=== PATIENT | female | born 1940 | race Native Hawaiian/Other Pacific Islander ===

== ENCOUNTER 2018-01-23 16:19 | Inpatient (IN) | payer MEDICARE ==
--- NOTE | 2018-01-23 17:11 | C.PDOC ---
History Of Present Illness Patient KIRK for evaluation after she was found sitting on the porch steps outside her home. As per son, he was called by a neighbor who saw her outside. Patient apparently was trying to get into the home when she became weak and confused. As per son, he found her at approx 4 pm and called the ambulance ( seen normal at 1:30pm). Son states she appears to understand when being spoken to but cannot get the correct words out, and this is not typical of her baseline. Family denies facial droop, extremity weakness, sensory changes, drooling, slurred speech. PMhx of HTN, breast CA s/p mastectomy. PMD- Dr Milton in [facility] Time Seen by Provider: 01/23/18 16:52 Chief Complaint (Nursing): Weakness/Neurological Deficit History Per: Patient, EMS, Family History/Exam Limitations: clinical condition Onset/Duration Of Symptoms: Hrs (approx 4pm) Current Symptoms Are (Timing): Still Present Past Medical History Reviewed: Historical Data, Nursing Documentation, Vital Signs Vital Signs: Last Vital Signs Temp 100.2 F H 01/24/18 15:20 Pulse 102 H 01/24/18 15:20 Resp 18 01/24/18 15:20 BP 169/91 H 01/24/18 15:20 Pulse Ox 97 01/24/18 15:20 - Medical History PMH: HTN Family History: States: No Known Family Hx - Social History Hx Alcohol Use: No Hx Substance Use: No Review Of Systems Review Of Systems: ROS cannot be obtained secondary to pt's inabilty to answer questions. Physical Exam - Physical Exam Appears: Well, Non-toxic, No Acute Distress Head: Atraumatic, Normacephalic Eye(s): bilateral: Normal Inspection (no nystagmus ), PERRL, EOMI Oral Mucosa: Moist Neck: Other (no meningismus) Cardiovascular: Rhythm Regular (tachycardic ) Respiratory: Normal Breath Sounds, No Rales, No Rhonchi, No Wheezing Gastrointestinal/Abdominal: Normal Exam, Bowel Sounds, Soft, No Tenderness Neurological/Psych: Oriented x3, Normal Speech, Normal Cognition, Normal Cranial Nerves, No Cerebellar Signs, Normal Motor, Normal Sensation, Normal Reflexes, Expressive Aphasia, No Dysarthria ED Course And Treatment - Laboratory Results Result Diagrams: 01/24/18 08:02 01/24/18 08:02 ECG: Interpreted By Me, Viewed By Me (sinus tachycardia 104 bpm, normal axis, LVH, T wave ) O2 Sat by Pulse Oximetry: 98 (RA) Pulse Ox Interpretation: Normal - CT Scan/US CTA HEAD/NECK Other Rad Studies (CT/US): Read By Radiologist, Radiology Report Reviewed CT/US Interpretation: Accession No. : [id number]. Patient Name / ID : EFE TRIANA / [id number]. Exam Date : 01/23/2018 17:19:54 ( Approved ). Study Comment : Sex / Age : F / 77Y. Creator : Marley Oconnor. Dictator : Clement Canela MD. Lead Pressman : [employer] : Clement Canela MD. Approver2 : Report Date : 01/23/2018 17:28:13. My Comment : . PROCEDURE: CT Angiography of the Brain. HISTORY: code stroke. COMPARISON: None available. TECHNIQUE: CT angiography of the intracranial and cervical arteries was performed. Coronal and sagittal maximum intensity projection reformatted images were generated. Contrast Dose: Visipaque 320, 100 cc. Radiation dose:Total exam DLP = 350.44 mGy-cm. This CT exam was performed using one or more of the following dose reduction techniques: Automated exposure control, adjustment of the mA and/or kV according to patient size, and/ or use of iterative reconstruction technique. FINDINGS: INTERNAL CEREBRAL ARTERIES: Unremarkable. The skull base, petrous, and supraclinoid segments are bilaterally widely patent. There is prominent atherosclerosis of the bilateral cavernous internal carotid artery segments which appear nevertheless patent grossly. 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 The right A1 and bilateral A2 segments are widely patent. Smaller distal branches unremarkable, as visualized. MIDDLE CEREBRAL ARTERIES: Unremarkable. M1 and M2 segments are widely patent. Perisylvian branches grossly symmetric. POSTERIOR CIRCULATION: Basilar Artery : Unremarkable. Distal Vertebral Arteries: Unremarkable. Posterior Cerebral Arteries: Right posterior artery appears widely patent. The left METAL POLISHER P1 segment appears hypoplastic. Posterior Inferior Cerebellar Arteries: Unremarkable. NECK CTA: Common Carotid arteries: The bilateral common carotid appear widely patent from their origins to their bifurcations with no significant stenosis appreciated. No evidence to suggest common carotid artery dissection. Internal Carotid arteries: No significant stenosis is appreciated throughout the cervical internal carotid artery segments bilaterally and there is no evidence of dissection either. External Carotid arteries: Appear unremarkable bilaterally. Vertebral arteries: The bilateral vertebral arteries appear normal in caliber from their origins to their junction with the basilar artery. No significant stenosis or definite pattern of dissection. ANEURYSM/ VASCULAR MALFORMATIONS: None. OTHER FINDINGS: None. 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 Hypoplastic left P1 METAL POLISHER segment. Remainder the brain CT is remarkable for extensive bilateral ICA cavernous atherosclerotic plaque with both vessels remaining patent nevertheless. No definite significant stenosis or definite occlusion identified in neck CTA. CT HEAD Other Rad Studies (CT/US): Read By Radiologist, Radiology Report Reviewed CT/US Interpretation: Accession No. : [id number]. Patient Name / ID : EFE TRIANA / [id number]. Exam Date : 01/23/2018 17:13:47 ( Approved ). Study Comment : Sex / Age : F / 77Y. Creator : Marley Oconnor. Dictator : Chino Echavarria MD. Lead Pressman : [employer] : Chino Echavarria MD. Approver2 : Report Date : 01/23/2018 17:20:25. My Comment : . PROCEDURE: CT HEAD WITHOUT CONTRAST. HISTORY: Code Stroke. Leg weakness, side unspecified. Expressive aphasia a start at approximately 16:00 today. COMPARISON: None available. TECHNIQUE: Axial computed tomography images were obtained through the head/brain without intravenous contrast. Radiation dose: Total exam DLP = 735.36 mGy-cm. This CT exam was performed using one or more of the following dose reduction techniques: Automated exposure control, adjustment of the mA and/or kV according to patient size, and/or use of iterative reconstruction technique. FINDINGS: HEMORRHAGE: No intracranial hemorrhage. BRAIN: No mass effect or edema. Questionable small brainstem infarct on the right. VENTRICLES: Unremarkable. No hydrocephalus. CALVARIUM: Unremarkable. PARANASAL SINUSES: Unremarkable as visualized. No significant inflammatory changes. MASTOID AIR CELLS: Unremarkable as visualized. No inflammatory changes. OTHER FINDINGS: None. IMPRESSION: No acute intracranial findings. 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 . Code stroke protocol: Study completed 17: 16. Radiologist notified 17:24. Results conveyed verbally at 17:27 I discussed findings directly with the attending physician emergency department Dr. Peres. Interpretation finalized and available for review 17:30 Progress Note: Code stroke called. Blood work, CT head and CTA head/neck, EKG ordered and reviewed. When returned from CT scan patient noted to have low grade temp - 100.9. UA, Blood culture, Ucx, influenza swab, VBG added. 5:45pm - Patient now speaking normally, no aphasia, no neurological deficits. - Physician Consult Information Physician Contacted: Butch Cagle Outcome Of Conversation: Discussed patient with neurology agronomy advisor - recommends no tPA at this time, PO ASA and Plavix. NIHSS Stroke Scale 2 - Date/Time Evaluation Performed Date Performed: 01/23/18 Time Performed: 17:04 When Was NIHSS Performed: Baseline - How Severe is the Stroke Level of Consciousness: 0=Alert LOC to Questions: 0=Both comments correct LOC to commands: 0=Obeys both correctly Best Gaze: 0=Normal Visual: 0=No visual loss Facial: 0=Normal Motor Arm - Left: 0=No drift Motor Arm - Right: 0=No drift Motor Leg - Left: 0=No drift Motor Leg - Right: 0=No drift Limb Ataxia: 0=Absent Sensory: 0=Normal Best Language: 1=Mild to moderate aphasia Dysarthia: 0=Normal articulation Extinction & Inattention (Neglect): 0=Normal, no object Score: 1 Severity Of Stroke: 1-4 = Minor Stroke rTPA Inclusion/Exclusion - Refusal of Treatment Patient Refused Treatment: No - Inclusion Criteria for Altepase Patient is 18 years or Older: Yes The Clinical Diagnosis of Ischemic Stroke That is Causing a Potentially Disabling Neurological Deficit: Yes Time of Onset is Well Established to be Less Than 270 Minute Before Treatment Would Begin: No Risk/Benefit Discussed With Patient/Family Member Present: No Medical Decision Making Medical Decision Making: differential diagnoses considered: TIA/CVA, seizure, electrolyte abnormality, sepsis/SIRS, cardiac arrhythmia Disposition - Disposition Disposition: HOSPITALIZED Disposition Time: 18:44 Condition: STABLE - Clinical Impression Clinical Impression: Expressive aphasia, Transient ischemic attack Decision To Admit - Pt Status Changed To: Hospital Disposition Of: Inpatient - Admit Certification Admit to Inpatient:: After my assessment, the patient will require hospitalization for at least two midnights. This is because of the severity of symptoms shown, intensity of services needed, and/or the medical risk in this patient being treated as an outpatient. - InPatient: Physician Admission Certification: I certify that this patient requires 2 or more midnights of care for the following reason:: see notes - . Bed Request Type: Telemetry Admitting Physician: Mindi Richards Patient Diagnosis: Expressive aphasia, Transient ischemic attack
--- NOTE | 2018-01-23 17:30 | CT ---
PROCEDURE: CT HEAD WITHOUT CONTRAST. HISTORY: Code Stroke Leg weakness, side unspecified. Expressive aphasia a start at approximately 16:00 today COMPARISON: None available. TECHNIQUE: Axial computed tomography images were obtained through the head/brain without intravenous contrast. Radiation dose: Total exam DLP = 735.36 mGy-cm. This CT exam was performed using one or more of the following dose reduction techniques: Automated exposure control, adjustment of the mA and/or kV according to patient size, and/or use of iterative reconstruction technique. FINDINGS: HEMORRHAGE: No intracranial hemorrhage. BRAIN: No mass effect or edema. Questionable small brainstem infarct on the right. VENTRICLES: Unremarkable. No hydrocephalus. CALVARIUM: Unremarkable. PARANASAL SINUSES: Unremarkable as visualized. No significant inflammatory changes. MASTOID AIR CELLS: Unremarkable as visualized. No inflammatory changes. OTHER FINDINGS: None. IMPRESSION: No acute intracranial findings. 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 Code stroke protocol: Study completed 17:16 Radiologist notified 17:24 Results conveyed verbally at 17:27 I discussed findings directly with the attending physician emergency department Dr. Peres Interpretation finalized and available for review 17:30
[2018-01-23] MEDS ORDERED: Iodixanol 320 MG/ML 100 ML BOTTLE IV ONE (17:33)
--- NOTE | 2018-01-23 17:47 | CP.PCM.CON ---
History of Present Illness - History of Present Illness History of Present Illness: Tele-Stroke Consult Note: This is a telehealth visit completed using bi- directional video conference with the [email or web address] system. The patient is a 77-year-old woman with a past medical history of HTN, hypothyroidism, breast cancer, who was found by her son sitting on her porch, confused with speech difficulty. She was last seen normal at around 1:30 PM. In the ED, she was slightly hypertensive and was febrile. CT scan of the head did not show any acute findings. CTA of the head/neck was poor quality, but there was no large vessel occlusion noted. She was not a good candidate for IV tPA due to being outside the 3 hour time window and symptoms were not characteristic of an acute stroke. When I saw the patient, her speech was fluent and she was back to baseline without symptoms. NIHSS was 0. Review of Systems - Review of Systems All systems: reviewed and no additional remarkable complaints except Past Patient History - Past Social History Smoking Status: Never Smoked - CARDIAC Hx Hypertension: Yes - ENDOCRINE/METABOLIC Hx Diabetes Mellitus Type 2: Yes - PSYCHIATRIC Hx Substance Use: No Meds Allergies/Adverse Reactions: Allergies Allergy/AdvReac Type Severity Reaction Status Date / Time No Known Allergies Allergy Unverified 01/23/18 16:49 Physical Exam - Neurological Exam Neurological exam: Alert, CN II-XII Intact, Oriented x3, Reflexes Normal Additional comments: Speech is fluent, not dysarthric, repetition was intact, naming was intact. Strength was symmetrical throughout. No focal motor deficits. No sensory deficits. NIHSS was 0. Results - Vital Signs Recent Vital Signs: Last Vital Signs Temp 98.0 F 01/23/18 16:47 Pulse 103 H 01/23/18 16:47 Resp 20 01/23/18 16:47 BP 154/73 H 01/23/18 16:47 Pulse Ox 98 01/23/18 17:23 - Labs Result Diagrams: 01/23/18 17:44 Assessment & Plan (1) Transient ischemic attack Assessment and Plan: According to ED staff, the patient was aphasic prior to my examination. However , when I saw her, she did not have any speech difficulty and no motor/sensory deficits. I recommend the followin. Telemetry 2. MRI brain without contrast 3. Echocardiogram with bubble study 4. Aspirin 81 mg daily 5. Lipid panel, HbA1c, B12, folate, vitamin D levels 6. Fluids with NS at 100 mL/hr 7. Permissive HTN (only treat BP that is higher than 220/110 mm Hg) 8. PT/OT eval 9. Case management consult Thank you. Status: Acute Priority: High
--- NOTE | 2018-01-23 17:49 | CT ---
PROCEDURE: CT Angiography of the Brain. HISTORY: code stroke COMPARISON: None available. TECHNIQUE: CT angiography of the intracranial and cervical arteries was performed. Coronal and sagittal maximum intensity projection reformatted images were generated. Contrast Dose: Visipaque 320, 100 cc Radiation dose:Total exam DLP = 350.44 mGy-cm. This CT exam was performed using one or more of the following dose reduction techniques: Automated exposure control, adjustment of the mA and/or kV according to patient size, and/or use of iterative reconstruction technique. FINDINGS: INTERNAL CEREBRAL ARTERIES: Unremarkable. The skull base, petrous, and supraclinoid segments are bilaterally widely patent. There is prominent atherosclerosis of the bilateral cavernous internal carotid artery segments which appear nevertheless patent grossly. 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 The right A1 and bilateral A2 segments are widely patent. Smaller distal branches unremarkable, as visualized. MIDDLE CEREBRAL ARTERIES: Unremarkable. M1 and M2 segments are widely patent. Perisylvian branches grossly symmetric. POSTERIOR CIRCULATION: Basilar Artery: Unremarkable. Distal Vertebral Arteries: Unremarkable. Posterior Cerebral Arteries: Right posterior artery appears widely patent. The left CRISIS INTERVENTION SPECIALIST P1 segment appears hypoplastic. Posterior Inferior Cerebellar Arteries: Unremarkable. NECK CTA: Common Carotid arteries: The bilateral common carotid appear widely patent from their origins to their bifurcations with no significant stenosis appreciated. No evidence to suggest common carotid artery dissection. Internal Carotid arteries: No significant stenosis is appreciated throughout the cervical internal carotid artery segments bilaterally and there is no evidence of dissection either. External Carotid arteries: Appear unremarkable bilaterally. Vertebral arteries: The bilateral vertebral arteries appear normal in caliber from their origins to their junction with the basilar artery. No significant stenosis or definite pattern of dissection. ANEURYSM/ VASCULAR MALFORMATIONS: None. OTHER FINDINGS: None. 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 Hypoplastic left P1 CRISIS INTERVENTION SPECIALIST segment. Remainder the brain CT is remarkable for extensive bilateral ICA cavernous atherosclerotic plaque with both vessels remaining patent nevertheless. No definite significant stenosis or definite occlusion identified in neck CTA.
[2018-01-23 17:56] LABS: PROTHROMBIN TIME 11.6 SECONDS (9.7-12.2)
[2018-01-23 18:01] LABS: ALBUMIN 3.8 g/dL (3.5-5.0); ALT/SGPT 19 U/L (9-52); AST/SGOT 24 U/L (14-36); BLOOD UREA NITROGEN 16 mg/dL (7-17); CALCIUM 8.5 mg/dl (8.6-10.4); GFR AFRICAN-AMERICAN > 60; GFR NON-AFRICAN AMERICAN > 60; HDL CHOLESTEROL 45 mg/dL (30-70)
[2018-01-23 18:13] LABS: LDL CHOLESTEROL 117 mg/dL (0-129)
[2018-01-23 18:26] LABS: VENOUS BLOOD GAS BASE EXCESS -0.9 mmol/L (0.0-2.0); VENOUS BLOOD GAS PCO2 31 mmHg (40-60); VENOUS BLOOD GAS PO2 35 mm/Hg (30-55); VENOUS BLOOD PH 7.46 (7.32-7.43)
[2018-01-23 18:27] LABS: BASO % 0.3 % (0.0-2.0); EOS % 0.4 % (0.0-4.0); HEMOGLOBIN 14.2 g/dL (11.0-16.0); LYMPH # 0.4 K/uL (1.0-4.3); LYMPH % 4.3 % (20.0-40.0); MEAN CELL VOLUME 86.8 fL (81.0-99.0); MEAN CORPUSCULAR HEMOGLOBIN 29.9 pg (27.0-31.0); MEAN CORPUSCULAR HGB CONC 34.5 g/dL (33.0-37.0); MEAN PLATELET VOLUME 7.8 fL (7.2-11.7); MONO # 0.7 K/uL (0.0-0.8); MONO % 6.7 % (0.0-10.0); NEUT # 8.8 K/uL (1.8-7.0); NEUT % 88.3 % (50.0-75.0); PLATELET COUNT 216 K/uL (130-400); RBC 4.74 Mil/uL (3.80-5.20); WHITE BLOOD COUNT 9.9 K/uL (4.8-10.8)
--- NOTE | 2018-01-23 18:45 | RAD ---
HISTORY: Code Stroke COMPARISON: No prior. FINDINGS: LUNGS: No active pulmonary disease. PLEURA: No significant pleural effusion identified, no pneumothorax apparent. CARDIOVASCULAR: Normal. OSSEOUS STRUCTURES: No significant abnormalities. VISUALIZED UPPER ABDOMEN: Normal. OTHER FINDINGS: None. IMPRESSION: No active disease.
[2018-01-23] MEDS ORDERED: Sodium Chloride 0.9% 500 ML IV ONE (18:48)
[2018-01-23 19:24] LABS: LYMPHOCYTE 4 % (20-40); MONOCYTE 4 % (0-10); NEUTROPHIL 92 % (50-75); PLATELET ESTIMATE NORMAL (NORMAL); TOTAL CELLS COUNTED 100
[2018-01-23 19:25] LABS: ANISOCYTOSIS SLIGHT; OVALOCYTES SLIGHT; POIKILOCYTOSIS SLIGHT
[2018-01-23 20:15] LABS: SQUAMOUS EPITHIAL < 1 /hpf (0-5); URINE BACTERIA RARE (<OCC); URINE BILIRUBIN NEGATIVE (NEGATIVE); URINE BLOOD 1+ (NEGATIVE); URINE CLARITY Clear (Clear); URINE COLOR Yellow (YELLOW); URINE GLUCOSE (UA) 1+ mg/dL (Normal); URINE LEUKOCYTE ESTERASE NEG Leu/uL (Negative); URINE PROTEIN 1+ mg/dL (NEGATIVE); URINE UROBILINOGEN NORMAL mg/dL (0.2-1.0)
[2018-01-24] MEDS: Levothyroxine 25 MCG TAB PO SCH (06:22)
--- NOTE | 2018-01-24 07:31 | CP.PCM.PN ---
Subjective - Date & Time of Evaluation Date of Evaluation: 01/24/18 Time of Evaluation: 07:30 - Subjective Subjective: Ms. Vega was seen and examined at the bedside. She is alert, oriented in all spheres. She denies any headache, dizziness, lightheadedness, nausea, vomiting. She remains febrile with T- max of 101.4. septic work up was done. ID on board. She is able to follow simple commands. HGBA1C is 9.9 and LDL of 117. She is able to ambulate to the bathroom last night with minimal assistance. Objective - Vital Signs/Intake and Output Vital Signs (last 24 hours): Temp Pulse Resp BP Pulse Ox 101.4 F H 99 H 20 135/64 99 01/24/18 06:39 01/24/18 04:00 01/24/18 04:00 01/24/18 04:00 01/24/18 04:00 - Medications Medications: Current Medications Aspirin (Aspirin Chewable) 81 mg PO DAILY [facility] Clopidogrel Bisulfate (Plavix) 75 mg PO DAILY [facility] Famotidine (Pepcid) 20 mg PO DAILY [facility] Insulin Aspart (Novolog) 0 unit SC ACHS [facility] PRN Reason: Protocol Levothyroxine Sodium (Synthroid) 25 mcg PO DAILY@0630 [facility] Last Admin: 01/24/18 06:22 Dose: 25 mcg Pneumococcal Polyvalent Vaccine (Pneumovax 23 Vaccine) 0.5 ml IM .ONCE ONE Stop: 01/25/18 10:01 - Labs Labs: 01/23/18 18:23 01/23/18 17:44 PT 11.6 SECONDS (9.7-12.2) 01/23/18 17:44 INR 1.0 01/23/18 17:44 APTT 19 SECONDS (21-34) L 01/23/18 17:44 - Constitutional Appears: No Acute Distress - Head Exam Head Exam: NORMAL INSPECTION - Eye Exam Pupil Exam: PERRL - Neck Exam Neck Exam: Full ROM - Extremities Exam Extremities Exam: Full ROM, Normal Capillary Refill, Normal Inspection. absent : Joint Swelling, Pedal Edema - Neurological Exam Neurological Exam: Alert, Awake, Oriented x3 Neuro motor strength exam: Left Upper Extremity: 4, Right Upper Extremity: 4, Left Lower Extremity: 4, Right Lower Extremity: 4 Additional comments: She is alert, oriented, follows all commands, Sensation is intact. Assessment and Plan (1) Transient ischemic attack Assessment & Plan: Case discussed with Dr. Cagle, continue all current medical, physical, and occupational therapies. Recommend for permissive hypertension until 18:00 today , treat systolic blood pressure more than 220mm/ Hg, and diastolic more than > 110 mm/Hg. Recommend glycemic control and endrocrine consult. Pending MRI of the brain without contrast. MRA of the head and neck due to poor quality of CTA. Pending echocardiogram. Recommend to follow any orders from ID. Status: Acute
[2018-01-24] MEDS: (Novolog) Insulin Aspart, Recombinant 100 u/ml 10 ml vial SC SCH ×4 (07:54→21:18)
[2018-01-24 08:17] LABS: HEMOGLOBIN 13.2 g/dL (11.0-16.0); MEAN CELL VOLUME 86.5 fL (81.0-99.0); MEAN CORPUSCULAR HEMOGLOBIN 30.2 pg (27.0-31.0); MEAN PLATELET VOLUME 8.3 fL (7.2-11.7); RBC 4.35 Mil/uL (3.80-5.20); WHITE BLOOD COUNT 5.8 K/uL (4.8-10.8)
[2018-01-24 08:28] LABS: BLOOD UREA NITROGEN 16 mg/dL (7-17); CALCIUM 8.4 mg/dl (8.6-10.4); GFR AFRICAN-AMERICAN > 60; GFR NON-AFRICAN AMERICAN > 60
[2018-01-24 08:37] LABS: IRON 26 ug/dL (37-170)
[2018-01-24 08:48] LABS: % IRON SATURATION 9 (20-55); TOTAL IRON BINDING CAPACITY 297 ug/dL (250-450)
--- NOTE | 2018-01-24 08:51 | CP.PCM.PN ---
Subjective - Date & Time of Evaluation Date of Evaluation: 01/24/18 Time of Evaluation: 08:51 - Subjective Subjective: INFECTIOUS DISEASE CONSULT; HPI; 77 years old [place] female admitted via the emergency room with acute confusion, expressive aphasia.s/p CODE STROKE Emergency neuro consult obtained. CT head with no intracranial hemorrhage or infarct. Patient presently has no residual weakness, slurred speech but feels weak. Patient also admits to elevated temperatures for 1 day. In the ER patient was found to have a fever of 101.4. Patient presently denies any sore throat but states she had upper respiratory infection prior to this event. Patient denies any headaches or sinus problems. Chest x-ray on admission was unremarkable. Infectious disease consult requested by PMD for elevated temperatures/possible sepsis. PMH: HTN,HYPOTHYROIDISM, BREAST CA s/p mastectomy. In remission as per family members. Family History: States: No Known Family Hx - Social History Hx Alcohol Use: No Hx Substance Use: No Review Of Systems Review Of Systems: ROS cannot be obtained secondary to pt's inabilty to answer questions. WANTS HER SON TO ANSWER QUESTIONS. SHE FEELS WEAK,SPEECH CLEAR HAD URTI PRIOR TO THIS EVENT. DENIES HEADACHE/OR SINUS PROBLEM Objective - Vital Signs/Intake and Output Vital Signs (last 24 hours): Temp Pulse Resp BP Pulse Ox 99.8 F H 98 H 20 134/64 95 01/24/18 08:27 01/24/18 08:41 01/24/18 08:27 01/24/18 08:27 01/24/18 08:27 - Medications Medications: Current Medications Aspirin (Aspirin Chewable) 81 mg PO DAILY [facility] Clopidogrel Bisulfate (Plavix) 75 mg PO DAILY [facility] Famotidine (Pepcid) 20 mg PO DAILY [facility] Ceftriaxone Sodium 1 gm/ (Sodium Chloride) 100 mls @ 100 mls/hr IVPB Q12H [facility] PRN Reason: Protocol Insulin Aspart (Novolog) 0 unit SC ACHS [facility] PRN Reason: Protocol Last Admin: 01/24/18 07:54 Dose: Not Given Levothyroxine Sodium (Synthroid) 25 mcg PO DAILY@0630 [facility] Last Admin: 01/24/18 06:22 Dose: 25 mcg Pneumococcal Polyvalent Vaccine (Pneumovax 23 Vaccine) 0.5 ml IM .ONCE ONE Stop: 01/25/18 10:01 Rosuvastatin Calcium (Crestor) 20 mg PO HS [facility] - Labs Labs: 01/24/18 08:02 01/24/18 08:02 PT 11.6 SECONDS (9.7-12.2) 01/23/18 17:44 INR 1.0 01/23/18 17:44 APTT 19 SECONDS (21-34) L 01/23/18 17:44 - Constitutional Appears: No Acute Distress, Cachectic - Head Exam Head Exam: NORMAL INSPECTION - Eye Exam Eye Exam: EOMI, PERRL - ENT Exam ENT Exam: Mucous Membranes Dry, Normal Oropharynx - Neck Exam Neck Exam: Normal Inspection. absent: Meningismus - Respiratory Exam Respiratory Exam: Clear to Ausculation Bilateral - Cardiovascular Exam Cardiovascular Exam: REGULAR RHYTHM, +S2 - GI/Abdominal Exam GI & Abdominal Exam: Soft, Normal Bowel Sounds - Extremities Exam Extremities Exam: Normal Capillary Refill. absent: Calf Tenderness, Pedal Edema - Neurological Exam Neurological Exam: Alert, Awake, CN II-XII Intact, Normal Gait (NOT TESTED.), Reflexes Normal - Psychiatric Exam Psychiatric exam: Normal Mood - Skin Skin Exam: Normal Color, Warm Assessment and Plan (1) Fever Assessment & Plan: NEW ONSET. PANCULTURES. THROAT CULTURE. ESR CRP. C2,C4, CH50 RH FACTOR UA/URINE CULTURE. 2 D ECHO R/O VEGETATIONS START IV ROCEPHIN 1GM IVPB [id number] 01/24/18. F/U CULTURES TO ADJUST ABX. Status: Acute (2) Transient ischemic attack Assessment & Plan: S/P TIA. S/P EXPRESSIVE APHASIA Status: Acute (3) HTN (hypertension) Status: Acute (4) Hypothyroidism Assessment & Plan: TSH Status: Acute (5) Carcinoma of breast Status: Acute (6) S/P left mastectomy Status: Acute (7) Diabetes Status: Acute
[2018-01-24 09:43] LABS: FOLATE 18.2 ng/mL
--- NOTE | 2018-01-24 09:54 | HP ---
CHIEF COMPLAINT: Neurological weakness. HISTORY OF PRESENT ILLNESS: Ms. Samantha Vega, a 77-year-old female, was found sitting on the porch stairs outside her home. As per son, he was called by the neighbor who saw her outside. The patient apparently was trying to get into the home then she became weak and confused. As per son, he found her at approximately 4 p.m. and called the ambulance, seen normal at 1:30 p.m. Son states that she appears to understand but is not being to talk, cannot get the correct words out. This is not her baseline but no facial droop, no extremity weakness, no slurring speech. As per family, patient has history of hypertension, breast cancer, status post mastectomy. The patient is from [place]. PAST MEDICAL HISTORY: Hypertension, breast cancer, status post mastectomy. FAMILY HISTORY: Father and mother, noncontributory. HABITS: No smoking. No drugs. No ethanol. HOME MEDICATIONS: The patient does not remember. ALLERGIES: THE PATIENT IS NOT ALLERGIC TO ANY MEDICATIONS. REVIEW OF SYSTEMS: The patient was examined at the bedside in the ER. The patient was a little bit quiet. Not a good historian. The patient's son and friend was on the bedside. She gave me history. At that movement, no nausea, vomiting or diarrhea. No hematuria, no hematochezia. The patient was just sleepy. No headache, no dizziness. No fever, no chills. PHYSICAL EXAMINATION: VITAL SIGNS: Temperature 98.3, pulse 94, blood pressure 142/66, and respiratory rate 19. HEENT: Head is normocephalic and atraumatic. Eyes: PERRLA. Extraocular muscles intact. Conjunctivae clear. Nose patent. NECK: Supple. No carotid bruits. No JVD or thyromegaly. CHEST: Bilaterally symmetrical. HEART: S1 and S2 positive. LUNGS: Clear to auscultation. ABDOMEN: Soft. Bowel sounds positive. No organomegaly. EXTREMITIES: No edema and no cyanosis. NEUROLOGIC: The patient is sleepy though opening eyes with command and obeying simple orders. LABORATORY DATA: White blood cell is 9.9, hemoglobin 14.2, hematocrit 41.2, and platelets 216. Sodium 131, potassium 4.1, BUN 15, creatinine 0.8, glucose 197, and hemoglobin A1c 9.9. ASSESSMENT AND PLAN: Ms. Samantha Vega, a 77-year-old female with hyponatremia, hypochloremia, hyperglycemia, uncontrolled diabetes mellitus, hemoglobin A1c is 9.9, hypocalcemia, seen by Dr. Butch Cagle, oncologist on-call. The patient has hypertension, hypothyroidism, breast cancer, status post mastectomy, never smoked, diabetes mellitus type 2, electrolyte imbalance. According to the ER, the patient was aphasic but when I saw the patient, speech was fluent even she do not want to talk too much. The patient was admitted in the telemetry, MRI of the brain without contrast needed. Echocardiography with Doppler study is needed. Aspirin given. Gastrointestinal and deep venous thrombosis prophylaxis, permissive hypertension, out of bed, physical therapy. Appreciate Dr. Butch Cagle input. Neurologist is on the case. We will follow up. Mindi Richards MD MTDGiuseppe
--- NOTE | 2018-01-24 10:17 | MRI ---
PROCEDURE: MRI BRAIN WITHOUT CONTRAST HISTORY: TIA vs stroke COMPARISON: None. TECHNIQUE: Multiplanar, multisequence MR images of the brain were obtained without intravenous contrast enhancement. FINDINGS: HEMORRHAGE: None DWI: No evidence of an acute or early subacute infarction. BRAIN PARENCHYMA: A chronic lacune is again seen the left thalamus with your reiteration of limited diffuse cerebral atrophy noted. No definite edema pattern. There is no mass effect and midline brain anatomy is unremarkable as well as the overall extra-axial spaces. . VENTRICLES: Unremarkable. No hydrocephalus. CRANIUM: Unremarkable. ORBITS: Grossly unremarkable. PARANASAL SINUSES/MASTOIDS: Clear VASCULAR SYSTEM: Skull base flow voids intact. OTHER FINDINGS: None. IMPRESSION: No acute intracranial findings including brain infarction at this time. Chronic lacune again seen left thalamus. Limited diffuse cerebral atrophy reiterated.
--- NOTE | 2018-01-24 10:27 | MRI ---
PROCEDURE: MR Angiography of the neck without contrast HISTORY: TIA, poor quality of CTA COMPARISON: None available. TECHNIQUE: 3D [id number] angiography of the neck was performed. Rotating maximum intensity projection images of the cervical carotid and vertebral arteries were generated. The origins of the common carotid arteries were not visualized, which is a limitation inherent to the non-contrast time of flight technique. FINDINGS: RIGHT CAROTID ARTERIES: There is no significant stenosis identified in the common and internal as well as external carotid arteries with the carotid bulb grossly nonfocal appearing. These vessels all appear widely patent. LEFT CAROTID ARTERIES: There is no significant stenosis identified in the common and internal as well as external carotid arteries with the carotid bulb grossly nonfocal appearing. These vessels all appear widely patent. VERTEBRAL ARTERIES: Right Vertebral Artery: No significant stenosis. Left Vertebral Artery: No significant stenosis. OTHER FINDINGS: None. IMPRESSION: No significant arterial stenosis identified in MR Angiography of the neck.
--- NOTE | 2018-01-24 10:34 | MRI ---
PROCEDURE: Magnetic Resonance Angiography Brain HISTORY: TIA, poor quality of CTA COMPARISON: None available. TECHNIQUE: 3D time of flight MR angiography of the intracranial arteries was performed. Rotating maximum intensity projection images were generated. FINDINGS: INTERNAL CAROTID ARTERIES: Unremarkable. The skull base, petrous, cavernous and supraclinoid segments are bilaterally widely patient. ANTERIOR CEREBRAL ARTERIES: Hypoplastic left A1 DELTA noted. The right A1 and bilateral A2 segments are widely patent. Smaller distal branches unremarkable, as visualized. MIDDLE CEREBRAL ARTERIES: Unremarkable. M1 and M2 segments are widely patent. Perisylvian branches grossly symmetric. POSTERIOR CIRCULATION: Basilar Artery: Unremarkable. Distal Vertebral Arteries: Unremarkable. Posterior Cerebral Arteries: Hypoplastic left P1 FIELD SERVICE SUPERVISOR noted. Posterior Inferior Cerebellar Arteries: Unremarkable. ANEURYSM/ VASCULAR MALFORMATIONS: None. OTHER FINDINGS: None. IMPRESSION: Stable brain MR angiography including hypoplastic right A1 DELTA and P1 FIELD SERVICE SUPERVISOR branches noted. Intracranial arterial circulation otherwise appears unremarkable.
--- NOTE | 2018-01-24 12:14 | RAD ---
PROCEDURE: CHEST RADIOGRAPH, 1 VIEW HISTORY: fever COMPARISON: None available. FINDINGS: LUNGS: Clear. PLEURA: No pneumothorax or pleural fluid seen. CARDIOVASCULAR: Atherosclerotic aortic calcifications. Cardiomediastinal silhouette within normal limits. OSSEOUS STRUCTURES: Unchanged. VISUALIZED UPPER ABDOMEN: Normal. OTHER FINDINGS: None. IMPRESSION: No active disease.
[2018-01-24] MEDS: Dextrose 5%/0.45% NS 1,000 ML IV SCH (17:06)
[2018-01-25] MEDS: Dextrose 5%/0.45% NS 1,000 ML IV SCH ×4 (03:00→23:00)
[2018-01-25] MEDS: Levothyroxine 25 MCG TAB PO SCH (05:43)
--- NOTE | 2018-01-25 07:11 | CP.PCM.PN ---
Subjective - Date & Time of Evaluation Date of Evaluation: 01/25/18 Time of Evaluation: 07:11 - Subjective Subjective: Ms. Vega was seen and examined at the bedside. She is alert, oriented in all spheres. She denies any headache, dizziness, lightheadedness, nausea, vomiting. She remains afebrile with T- max of 99.7. She further verbalize of following several primary physician, advise patient to pick one primary physician that she could regularly follow up for her safety. She is able to follow simple commands. She is able to drink PO fluids with no s/s of aspiration, however, PO drink is high in sugar content and eating fried food. She has a sarahi stocking and SCD on. MRI of the brain showed no acute intracranila findings including brain infarction at this time. Chronic lacune again seen in the left thalamus. There is a limited diffuse cerebral atrophy. MRA of the neck showed no significant stenosis. MRA of the head showed hypoplastic right A1ACA and P1 GLOBAL REGULATORY AFFAIRS MANAGER branches. Intracranial artery circulation appear unremarkable. She is able to ambulate to the bathroom last night with minimal assistance. She complain of back pain last night wherein Tyleno PO was given with relief. Objective - Vital Signs/Intake and Output Vital Signs (last 24 hours): Temp Pulse Resp BP Pulse Ox 99.7 F H 94 H 20 164/65 H 100 01/25/18 04:35 01/25/18 04:35 01/25/18 04:35 01/25/18 04:35 01/25/18 04:35 Intake and Output: 01/25/18 01/25/18 06:59 18:59 Intake Total 750 Balance 750 - Medications Medications: Current Medications Acetaminophen (Tylenol 325mg Tab) 650 mg PO Q6 PRN PRN Reason: Headache temp 101 and above Last Admin: 01/25/18 05:44 Dose: 650 mg Aspirin (Aspirin Chewable) 81 mg PO DAILY [facility] Last Admin: 01/24/18 10:40 Dose: 81 mg Clopidogrel Bisulfate (Plavix) 75 mg PO DAILY [facility] Last Admin: 01/24/18 10:40 Dose: 75 mg Famotidine (Pepcid) 20 mg PO DAILY [facility] Last Admin: 01/24/18 10:40 Dose: 20 mg Ceftriaxone Sodium 1 gm/ (Sodium Chloride) 100 mls @ 100 mls/hr IVPB Q12H [facility] PRN Reason: Protocol Last Admin: 01/24/18 21:10 Dose: 100 mls/hr Dextrose/Sodium Chloride (Dextrose 5%/0.45% Ns 1000 Ml) 1,000 mls @ 100 mls/hr IV .Q10H [facility] Last Admin: 01/25/18 04:30 Dose: 100 mls/hr Insulin Aspart (Novolog) 0 unit SC ACHS [facility] PRN Reason: Protocol Last Admin: 01/24/18 21:18 Dose: Not Given Levothyroxine Sodium (Synthroid) 25 mcg PO DAILY@0630 [facility] Last Admin: 01/25/18 05:43 Dose: 25 mcg Pneumococcal Polyvalent Vaccine (Pneumovax 23 Vaccine) 0.5 ml IM .ONCE ONE Stop: 01/25/18 10:01 Rosuvastatin Calcium (Crestor) 20 mg PO HS [facility] Last Admin: 01/24/18 21:13 Dose: 20 mg - Labs Labs: 01/24/18 08:02 01/24/18 08:02 PT 11.6 SECONDS (9.7-12.2) 01/23/18 17:44 INR 1.0 01/23/18 17:44 APTT 19 SECONDS (21-34) L 01/23/18 17:44 - Constitutional Appears: No Acute Distress - Head Exam Head Exam: NORMAL INSPECTION - Neurological Exam Neurological Exam: Alert, Awake, Oriented x3 Neuro motor strength exam: Left Upper Extremity: 5, Right Upper Extremity: 5, Left Lower Extremity: 5, Right Lower Extremity: 5 Additional comments: Neurological unchanged from previous examination. Assessment and Plan (1) Transient ischemic attack Assessment & Plan: Case discussed with Dr. Cagle, continue all current medical regimen. Recommend blood pressure and glycemic control. Recommend a ballet professor consult regarding food choices. Pending echocardiogram result.If patient is to be discharge to follow up with her own private neurologist or Dr. Cagle at [address] [place] [address] [place] [address]. Tel # [phone]. Status: Acute
[2018-01-25 07:42] LABS: ALB/GLOB RATIO 0.9 (1.0-2.1); ALBUMIN 3.1 g/dL (3.5-5.0); BILIRUBIN,DIRECT 0.5 mg/dL (0.0-0.4)
[2018-01-25] MEDS: (Novolog) Insulin Aspart, Recombinant 100 u/ml 10 ml vial SC SCH ×5 (08:12→21:31)
[2018-01-25 08:49] LABS: COMPLEMENT C4 66.6 mg/dL (14.0-44.0)
--- NOTE | 2018-01-25 08:50 | PN ---
DATE: 01/24/2018 SUBJECTIVE: Patient is 77-year-old female. The patient is seen and examined at the bedside, looking little bit better. Confusion is better. She is back to her baseline conversation. No more expressive aphasia, status post code stroke. No more fever. No headache. No dizziness. The patient is a very poor historian. No chest pain, no palpitation. PHYSICAL EXAMINATION: VITAL SIGNS: Temperature 98.8, T-max 101.4, pulse 102, blood pressure 169/91, respiratory rate 18. HEENT: Head: Normocephalic, atraumatic. Eyes: PERRLA. Extraocular movements are intact. Conjunctivae clear. Nose patent. Mucous membranes are moist. NECK: Supple. No carotid bruit, JVD, or thyromegaly. CHEST: Bilaterally symmetrical. HEART: S1 and S2 positive. LUNGS: Clear to auscultation. ABDOMEN: Soft. Bowel sounds are present. No organomegaly. EXTREMITIES: No edema. No cyanosis. NEUROLOGIC: The patient is awake and alert. Moving all four extremities. No focal deficits. MEDICATIONS: Aspirin, ceftriaxone, Crestor, DNS, Novolog, Pepcid, Plavix, levothyroxine, Tylenol. LABORATORY DATA: White blood cells 5.8, hemoglobin 13.2, hematocrit 37.6, and platelets 204. Sodium 135, potassium 3.8, BUN 16, creatinine 0.9, glucose 208, calcium 8.4, iron 26. ASSESSMENT AND PLAN: Ms. Singh is a 77-year-old lady with hypochloremia, hyperglycemia, hypocalcemia, iron deficiency, proteinuria, hematuria. Influenza type A and B is negative. Seen by Infectious Disease, Dr. Pipe Deng. History of hypertension, hypothyroidism, breast carcinoma status post mastectomy, in remission as per family. Came with transient ischemic attack, expressive aphasia. Continue antibiotics as per Infectious Disease. Seen by neurologist, Dr. Butch Cagle. Started the patient on intravenous fluid, Tylenol. Neurology suggested consult with railroad design consultant and echocardiograph. We will order that, out of bed, physical therapy. Gastrointestinal and deep vein thrombosis prophylaxis. Repeat labs. We will follow up. Mindi Richards MD MTDD
[2018-01-25] MEDS ORDERED: Pneumococcal 23-Valent Vaccine IM ONE (10:00)
--- NOTE | 2018-01-25 15:23 | CARD ---
APPROVED REPORT EXAM: Two-dimensional and M-mode echocardiogram with Doppler and color Doppler. Other Information Quality : AverageRhythm : NSR INDICATION CVA/TIA brest ca RISK FACTORS Hypertension M-Mode DIMENSIONS RVDd0.97 (2.1-3.2cm)Left Atrium (MM)3.97 (2.5-4.0cm) IVSd0.76 (0.7-1.1cm)Aortic Root2.51 (2.2-3.7cm) LVDd4.93 (4.0-5.6cm)Aortic Cusp Exc.1.53 (1.5-2.0cm) PWd0.90 (0.7-1.1cm)FS (%) 28 % LVDs3.54 (2.0-3.8cm)LVEF (%)54 (>50%) Aortic Valve AoV Peak Byavknii627.8cm/Funmilayo Peak GR.8mmHg Mitral Valve MV E Txrsrduv55.7cm/sMV A Tpzqlicb856.3cm/sE/A ratio0.7 TDI E/Lateral E'0.0E/Medial E'0.0 Tricuspid Valve TR Peak Mslvmsmb186wy/sRAP [id number] Peak Gr.26mmHg MYMA00usTc LEFT VENTRICLE There is normal left ventricular wall thickness. The left ventricular systolic function is normal. The left ventricular ejection fraction is within the normal range. There is normal LV segmental wall motion. Transmitral Doppler flow pattern is Grade I-abnormal relaxation pattern. Boerderline elevated left atrial pressure. RIGHT VENTRICLE The right ventricle is normal size. The right ventricular systolic function is normal. ATRIA The left atrium size is normal. The right atrium size is normal. AORTIC VALVE The aortic valve is normal in structure. No aortic regurgitation is present. MITRAL VALVE The anterior mitral valve leaflet appears thickened, but opens well. Mitral regurgitation is trace to mild. TRICUSPID VALVE The tricuspid valve is normal in structure. There is trace to mild tricuspid regurgitation. Right ventricular systolic pressure is estimated at less than 30 mmHg. PULMONIC VALVE The pulmonic valve is not well visualized. GREAT VESSELS The aortic root is normal in size. The IVC is normal in size and collapses >50% with inspiration. PERICARDIAL EFFUSION There is no pericardial effusion. <Conclusion> The left ventricular systolic function is normal. There is normal LV segmental wall motion. Transmitral Doppler flow pattern is Grade I-abnormal relaxation pattern. Boerderline elevated left atrial pressure. The right ventricular systolic function is normal. No significant valvular abnormality. No pericardial effusion.
--- NOTE | 2018-01-25 16:50 | CP.PCM.PN ---
Subjective - Date & Time of Evaluation Date of Evaluation: 01/25/18 Time of Evaluation: 16:49 - Subjective Subjective: CHIEF COMPLAINTS TODAY : TMAX 99.7. VS BP SLIGHTLY HIGH C/O DRY COUGH seen by neurologist. MRI/MRA REPORT and findings noted. denies headache/or dizziness. speech clear. ROS. HEENT : N. Resp : No SOB wheezing, +ve cough Cardio : No CP, PND orthopnea GI : No abd. Pain, n/v TYPING ELEMENT MACHINE OPERATOR : No headache , focal deficit. Musculoskel : N Ext. : Pedal pulses intact, no edema or calf pain Derm : N Psych : N. PE. Pt. is alert awake in no distress. V.S As noted in the chart Head ,ear nose,throat and eyes : Normal. Neck : Supple with normal carotids. Lungs: Clear air entry. Heart : S1 & S2 normal . . No murmur. S4 + Abd : Soft non tender with normal bowel sounds. Neuro : Moves all ext. with no localized deficit. Ext : No edema with intact pulses. Neg. calf tenderness Derm : No rashes or decubitus ulcer. Radiology/Labs . reviewed. blood cultures -ve to date. Urine culture -ve growth. Asssessment : TIA FEVER-ETIOLOGY NOT CLEAR HTN. CA BREAST S/P LT.MASTECTOMY. DM. HYPOTHYROIDISM. Plan : CT CHEST WITH IV CONTRAST R/O METASTATIC DISEASE 2 D ECHO R/O VEGETATIONS-P CONTINUE IV ROCEPHIN 1GM IVPB [id number] 01/24/18. F/U CULTURES TO ADJUST ABX. Status: Acute Objective - Vital Signs/Intake and Output Vital Signs (last 24 hours): Temp Pulse Resp BP Pulse Ox 99.5 F 89 20 157/79 H 99 01/25/18 15:30 01/25/18 15:30 01/25/18 15:30 01/25/18 15:30 01/25/18 15:30 Intake and Output: 01/25/18 01/25/18 06:59 18:59 Intake Total 750 Balance 750 - Medications Medications: Current Medications Acetaminophen (Tylenol 325mg Tab) 650 mg PO Q6 PRN PRN Reason: Headache temp 101 and above Last Admin: 01/25/18 05:44 Dose: 650 mg Aspirin (Aspirin Chewable) 81 mg PO DAILY [facility] Last Admin: 03/29/18 10:41 Dose: 81 mg Clopidogrel Bisulfate (Plavix) 75 mg PO DAILY [facility] Last Admin: 01/25/18 10:41 Dose: 75 mg Famotidine (Pepcid) 20 mg PO DAILY [facility] Last Admin: 01/25/18 10:41 Dose: 20 mg Ceftriaxone Sodium 1 gm/ (Sodium Chloride) 100 mls @ 100 mls/hr IVPB Q12H [facility] PRN Reason: Protocol Last Admin: 01/25/18 08:13 Dose: 100 mls/hr Dextrose/Sodium Chloride (Dextrose 5%/0.45% Ns 1000 Ml) 1,000 mls @ 100 mls/hr IV .Q10H [facility] Last Admin: 01/25/18 04:30 Dose: 100 mls/hr Insulin Aspart (Novolog) 0 unit SC ACHS [facility] PRN Reason: Protocol Last Admin: 01/25/18 12:22 Dose: 2 unit Levothyroxine Sodium (Synthroid) 25 mcg PO DAILY@0630 [facility] Last Admin: 01/25/18 05:43 Dose: 25 mcg Rosuvastatin Calcium (Crestor) 20 mg PO HS [facility] Last Admin: 01/24/18 21:13 Dose: 20 mg - Labs Labs: 01/24/18 08:02 01/24/18 08:02 PT 11.6 SECONDS (9.7-12.2) 01/23/18 17:44 INR 1.0 01/23/18 17:44 APTT 19 SECONDS (21-34) L 01/23/18 17:44 Assessment and Plan (1) Fever Status: Acute (2) Transient ischemic attack Status: Acute (3) HTN (hypertension) Status: Acute (4) Hypothyroidism Status: Acute (5) Carcinoma of breast Status: Acute (6) S/P left mastectomy Status: Acute (7) Diabetes Status: Acute
[2018-01-26] MEDS: Dextrose 5%/0.45% NS 1,000 ML IV SCH ×2 (05:28→17:10)
[2018-01-26] MEDS: Levothyroxine 25 MCG TAB PO SCH (05:30)
--- NOTE | 2018-01-26 06:35 | CP.PCM.PN ---
Subjective - Date & Time of Evaluation Date of Evaluation: 01/26/18 Time of Evaluation: 06:31 - Subjective Subjective: Ms. Vega was seen and examined at the bedside. She is alert, oriented. She is able to answer all questions. She denies any dizziness, lightheadedness, nausea, blurred vision. She claims of experiencing headache with her cold. She feels warm, her t-max 101.4. At present, her temp 98.4. She is able to follow simple commands, moves all extremities. She has SCD. Echocardiogram showed LV sytolic function with LV segmental wall motion normal.Transmitral doppler flow pattern is Grade-1 abnormal relaxation pattern. Elevated left atrial pressure. Objective - Vital Signs/Intake and Output Vital Signs (last 24 hours): Temp Pulse Resp BP Pulse Ox 98.4 F 87 20 135/63 96 01/25/18 23:25 01/26/18 04:00 01/25/18 23:25 01/25/18 23:25 01/25/18 23:25 Intake and Output: 01/25/18 01/26/18 18:59 06:59 Intake Total 1800 Balance 1800 - Medications Medications: Current Medications Acetaminophen (Tylenol 325mg Tab) 650 mg PO Q6 PRN PRN Reason: Headache temp 101 and above Last Admin: 01/26/18 05:34 Dose: 650 mg Aspirin (Aspirin Chewable) 81 mg PO DAILY [facility] Last Admin: 01/25/18 10:41 Dose: 81 mg Clopidogrel Bisulfate (Plavix) 75 mg PO DAILY [facility] Last Admin: 01/25/18 10:41 Dose: 75 mg Famotidine (Pepcid) 20 mg PO DAILY [facility] Last Admin: 01/25/18 10:41 Dose: 20 mg Ceftriaxone Sodium 1 gm/ (Sodium Chloride) 100 mls @ 100 mls/hr IVPB Q12H [facility] PRN Reason: Protocol Last Admin: 01/25/18 21:28 Dose: 100 mls/hr Dextrose/Sodium Chloride (Dextrose 5%/0.45% Ns 1000 Ml) 1,000 mls @ 100 mls/hr IV .Q10H [facility] Last Admin: 01/26/18 05:28 Dose: 100 mls/hr Insulin Aspart (Novolog) 0 unit SC ACHS [facility] PRN Reason: Protocol Last Admin: 01/25/18 21:31 Dose: Not Given Levothyroxine Sodium (Synthroid) 25 mcg PO DAILY@0630 [facility] Last Admin: 01/26/18 05:30 Dose: 25 mcg Rosuvastatin Calcium (Crestor) 20 mg PO HS [facility] Last Admin: 01/25/18 21:38 Dose: 20 mg - Labs Labs: 01/24/18 08:02 01/24/18 08:02 PT 11.6 SECONDS (9.7-12.2) 01/23/18 17:44 INR 1.0 01/23/18 17:44 APTT 19 SECONDS (21-34) L 01/23/18 17:44 - Constitutional Appears: No Acute Distress - Head Exam Head Exam: NORMAL INSPECTION - Neurological Exam Neurological Exam: Alert, Awake, Oriented x3 Neuro motor strength exam: Left Upper Extremity: 5, Right Upper Extremity: 5, Left Lower Extremity: 5, Right Lower Extremity: 5 Additional comments: Neurological unchanged from previous examination. Assessment and Plan (1) Transient ischemic attack Assessment & Plan: ase discussed with Dr. Cagle, continue all current medical regimen. Recommend to treat any underlying infection. Recommend blood pressure and glycemic control. Recommend a enterprise resource planner consult regarding food choices. Status: Acute
[2018-01-26 07:27] LABS: HEMOGLOBIN 12.2 g/dL (11.0-16.0); MEAN CORPUSCULAR HEMOGLOBIN 29.8 pg (27.0-31.0); MEAN CORPUSCULAR HGB CONC 34.3 g/dL (33.0-37.0); MEAN PLATELET VOLUME 8.4 fL (7.2-11.7); RBC 4.09 Mil/uL (3.80-5.20); RED CELL DISTRIBUTION WIDTH 12.9 % (11.5-14.5); WHITE BLOOD COUNT 4.6 K/uL (4.8-10.8)
[2018-01-26 07:30] LABS: BLOOD UREA NITROGEN 9 mg/dL (7-17); CALCIUM 7.5 mg/dl (8.6-10.4); GFR AFRICAN-AMERICAN > 60; GFR NON-AFRICAN AMERICAN > 60
[2018-01-26] MEDS: (Novolog) Insulin Aspart, Recombinant 100 u/ml 10 ml vial SC SCH ×3 (08:53→17:25)
--- NOTE | 2018-01-26 09:18 | PN ---
DATE: 01/25/2018 SUBJECTIVE: The patient is a 77-year-old female. The patient was seen and examined at the bedside, looking comfortable. Has a history of fever last night, had last night back pain, Tylenol was given, tolerated food, went to bathroom with minimal assistance. No nausea or vomiting. No hematuria. No hematochezia. PHYSICAL EXAMINATION: VITAL SIGNS: Temperature 99.5, T-max 100.2, pulse 94, blood pressure 164/55, respiratory rate 20. HEENT: Head: Normocephalic, atraumatic. Eyes: PERRLA. Extraocular movements are intact. Conjunctivae clear. Nose: Patent. Mucous membranes are moist. NECK: Supple. No carotid bruits, JVD, or thyromegaly. CHEST: Bilaterally symmetrical. HEART: S1 and S2 positive. LUNGS: Clear to auscultation. ABDOMEN: Soft. Bowel sounds are present. No organomegaly. EXTREMITIES: No edema. No cyanosis. NEUROLOGIC: The patient is awake and alert. Moving all 4 extremities with no focal deficits. MEDICATIONS: Aspirin, ceftriaxone, Crestor, dextrose, Novolin, Pepcid, Plavix, Synthroid, Tylenol. LABORATORY DATA: We do not have labs today. ASSESSMENT AND PLAN: ESR is 48, sugar 187, C-reactive protein 15 high, hypothyroidism, uncontrolled diabetes mellitus, hypocalcemia, seen by Dr. Pipe Deng - Infectious Disease. The patient has a history of carcinoma of the breast, left mastectomy, fever of unknown cause, transient ischemic attack, hypertension, seen by neurologist Dr. Butch Cagle. Brain MRI appreciated by me. Recommended good blood pressure control and glycemic control. Anthropologist Physical consult called. Discussion done with the staff. GI and DVT prophylaxes. Repeat labs. We will follow up. Mindi Richards MD
[2018-01-26] MEDS ORDERED: Iodixanol 320 MG/ML 100 ML BOTTLE IV ONE (11:04)
--- NOTE | 2018-01-26 12:38 | CT ---
PROCEDURE: CT Chest with contrast HISTORY: R/O METASTATIC DISEASE COMPARISON: None. TECHNIQUE: Contiguous axial images were obtained through the chest with intravenous contrast enhancement. Sagittal and coronal reconstructions were performed. IV contrast: Radiation dose (DLP): mGy-cm. This CT exam was performed using one or more of the following dose reduction techniques: Automated exposure control, adjustment of the mA and/or kV according to patient size, and/or use of iterative reconstruction technique. FINDINGS: LUNGS: Focal bronchiectasis in right middle lobe. Minimal subsegmental atelectasis in lingular segment left upper lobe. No acute infiltrate. No pulmonary mass. MEDIASTINUM: Unremarkable thoracic aorta. No aneurysm or dissection. Normal sized heart. Main pulmonary artery unremarkable. No vascular congestion. No lymphadenopathy. PLEURA: No pleural fluid. No pneumothorax. BONES: Incidental benign hemangioma of the T10 vertebral body. No acute fracture. UPPER ABDOMEN: Grossly unremarkable. OTHER FINDINGS: Left mastectomy. IMPRESSION: No evidence of metastasis. Status post left mastectomy. Minor findings as above.
--- NOTE | 2018-01-26 16:47 | CARD ---
APPROVED REPORT EKG Measurement Heart [id number] <Conclusion> Sinus tachycardia Left ventricular hypertrophy with repolarization abnormality Abnormal ECG
--- NOTE | 2018-01-26 19:46 | CP.PCM.CON ---
History of Present Illness - History of Present Illness History of Present Illness: diabetes Past Patient History - Past Medical History & Family History Past Medical History?: Yes - Past Social History Smoking Status: Never Smoked - CARDIAC Hx Hypertension: Yes - ENDOCRINE/METABOLIC Hx Diabetes Mellitus Type 2: Yes - MUSCULOSKELETAL/RHEUMATOLOGICAL Hx Falls: No - PSYCHIATRIC Hx Substance Use: No - SURGICAL HISTORY Hx Mastectomy: Yes (lt side) Meds Allergies/Adverse Reactions: Allergies Allergy/AdvReac Type Severity Reaction Status Date / Time No Known Allergies Allergy Unverified 01/23/18 16:49 - Medications Medications: Current Medications Acetaminophen (Tylenol 325mg Tab) 650 mg PO Q6 PRN PRN Reason: Headache temp 101 and above Last Admin: 01/26/18 05:34 Dose: 650 mg Aspirin (Aspirin Chewable) 81 mg PO DAILY [facility] Last Admin: 01/26/18 09:20 Dose: 81 mg Clopidogrel Bisulfate (Plavix) 75 mg PO DAILY [facility] Last Admin: 01/26/18 09:20 Dose: 75 mg Famotidine (Pepcid) 20 mg PO DAILY [facility] Last Admin: 01/26/18 09:20 Dose: 20 mg Ceftriaxone Sodium 1 gm/ (Sodium Chloride) 100 mls @ 100 mls/hr IVPB Q12H [facility] PRN Reason: Protocol Last Admin: 01/26/18 09:20 Dose: 100 mls/hr Dextrose/Sodium Chloride (Dextrose 5%/0.45% Ns 1000 Ml) 1,000 mls @ 100 mls/hr IV .Q10H [facility] Last Admin: 01/26/18 17:10 Dose: 100 mls/hr Insulin Human Regular (Novolin R) 0 unit SC ACHS [facility] PRN Reason: Protocol Levothyroxine Sodium (Synthroid) 25 mcg PO DAILY@0630 [facility] Last Admin: 01/26/18 05:30 Dose: 25 mcg Rosuvastatin Calcium (Crestor) 20 mg PO HS [facility] Last Admin: 01/25/18 21:38 Dose: 20 mg Results - Vital Signs Recent Vital Signs: Last Vital Signs Temp 99.6 F 01/26/18 15:10 Pulse 88 01/26/18 15:10 Resp 20 01/26/18 15:10 BP 164/84 H 01/26/18 15:10 Pulse Ox 99 01/26/18 15:10 - Labs Result Diagrams: 01/26/18 07:00 01/26/18 07:00 Labs: Laboratory Results - last 24 hr 01/25/18 01/26/18 01/26/18 20:35 06:26 07:00 WBC RBC Hgb Hct MCV MCH MCHC RDW Plt Count MPV ESR Sodium Potassium Chloride Carbon Dioxide Anion Gap BUN Creatinine Est GFR ( Amer) Est GFR (Non-Af Amer) POC Glucose (mg/dL) 187 H 265 H Random Glucose Calcium C-Reactive Protein 34.40 H 01/26/18 01/26/18 01/26/18 07:00 07:00 13:05 WBC 4.6 L RBC 4.09 Hgb 12.2 Hct 35.6 MCV 87.0 MCH 29.8 MCHC 34.3 RDW 12.9 Plt Count 133 MPV 8.4 ESR 43 H Sodium 131 L Potassium 3.4 L Chloride 102 Carbon Dioxide 19 L Anion Gap 13 BUN 9 Creatinine 0.7 Est GFR ( Amer) > 60 Est GFR (Non-Af Amer) > 60 POC Glucose (mg/dL) 148 H Random Glucose 218 H Calcium 7.5 L C-Reactive Protein 01/26/18 16:55 WBC RBC Hgb Hct MCV MCH MCHC RDW Plt Count MPV ESR Sodium Potassium Chloride Carbon Dioxide Anion Gap BUN Creatinine Est GFR ( Amer) Est GFR (Non-Af Amer) POC Glucose (mg/dL) 162 H Random Glucose Calcium C-Reactive Protein Assessment & Plan (1) Uncontrolled diabetes mellitus Assessment and Plan: Endocrine consult is 77 y/o woman admitted for altered mental satus /TIA as per pt. has diabetes since 2005 , denies neuropathy , retinopathy or nephropathy , denies CAD or PVD , @ home : on Metformin 500 mg po bid , also with vasculitis on steroid since 2008 , on prednisone 2.5 mg po qd also with hypothyroidism on levothyroxine 25 mcg poqd , denies thyroid nodules , neck irradiation , fhx of thyroid cancer BG 140-180 on D5 NS for poor intake allergy NKDA PMHX , HTN , Vasculitis , hyperlipidemia , breast cancer PShx : left mastectomy P psychiatry hx , denies social hx , denies smoking , ETOH or illicit drug use fhx , dnies Diabetes ROS consistuitional , denies fever or weakness ,HEENT , denies blurry vision , hearring disorder , chest , denies coungh or SOB , CVS , denies chest pain , palpitations , abdomen /GI (+) poor intake , denies abdominal pain , change bowel movement , extremities , denies edema , pain or tremors PE elderly woman lying in bed no acute distress , son ty bed side VSS HEENT , NC, AT neck supple , no palpable thyromegaly chest fair air entry CVS s1,s2 regular abdomen (+) bs , benign extremities no edema , no clubbing or cynosis , no tremors , right arm in support lab Na 131 , otherwise CMP wn , a1c 9.9 , TSH 1.5 Assessment uncontrolled DM chronic steroid use , hyponatremia hypothyroid TIA poor intake Plan d/c NOVOLOG start regular insulin , low dose tid & hs continue levothyroxine 25 mcg po qd resume prednisone 2.5 mg po qd , first stat monitor electrolyte on D5 thanks , will f/u with you Status: Acute (2) Hypothyroidism Status: Acute (3) Steroid long-term use Status: Acute (4) Transient ischemic attack Status: Acute Priority: High
[2018-01-26] MEDS: (Novolin R) Insulin Human Regular 100 units/ml vial SC SCH (22:00)
--- NOTE | 2018-01-26 22:30 | CP.PCM.PN ---
Subjective - Date & Time of Evaluation Date of Evaluation: 01/26/18 Time of Evaluation: 22:30 - Subjective Subjective: CHIEF COMPLAINTS TODAY : afebrile c/o dry cough for a long time as per son. NO FOCAL DEFICITS. ON CHRONIC STEROIDS ROS. HEENT : N. Resp : No SOB wheezing, +ve cough Cardio : No CP, PND orthopnea GI : No abd. Pain, n/v TIGHT COOPER : No headache , focal deficit. Musculoskel : N Ext. : Pedal pulses intact, no edema or calf pain Derm : N Psych : N. PE. Pt. is alert awake in no distress. V.S As noted in the chart Head ,ear nose,throat and eyes : Normal. Neck : Supple with normal carotids. Lungs: Clear air entry. Heart : S1 & S2 normal . . No murmur. S4 + Abd : Soft non tender with normal bowel sounds. Neuro : Moves all ext. with no localized deficit. Ext : No edema with intact pulses. Neg. calf tenderness Derm : No rashes or decubitus ulcer. Radiology/Labs . CT CHEST WITH iv CONTRAST NOTED-focal bronchiectasis right middle lobe. Subsegmental atelectasis lingular segment left upper lobe. No acute infiltrate, no masses, no metastasis s/p left mastectomy. reviewed. blood cultures -ve to date. Urine culture -ve growth. Asssessment : TIA FEVER-ETIOLOGY NOT CLEAR RT.MIDDLE LOBE BRONCHIECTASIS ? CHRONIC ASPIRATION VS YASEMIN- PULMONARY INFECTION HTN. CA BREAST S/P LT.MASTECTOMY. DM. HYPOTHYROIDISM. Plan : CONSIDER A SWALLOW EVALUATION QFT-GOLD TB TEST. .SPUTUM GRAM STAIN AND CULTURE. SPUTUM FOR afb 3 2 D ECHO R/O VEGETATIONS-P CONTINUE IV ROCEPHIN 1GM IVPB [id number] 01/24/18. F/U CULTURES TO ADJUST ABX. F/U FEVER CURVE.. Status: Acute Objective - Vital Signs/Intake and Output Vital Signs (last 24 hours): Temp Pulse Resp BP Pulse Ox 99.9 F H 92 H 18 161/76 H 97 01/26/18 21:13 01/26/18 21:13 01/26/18 21:13 01/26/18 21:13 01/26/18 21:13 - Medications Medications: Current Medications Acetaminophen (Tylenol 325mg Tab) 650 mg PO Q6 PRN PRN Reason: Headache temp 101 and above Last Admin: 01/26/18 22:16 Dose: 650 mg Aspirin (Aspirin Chewable) 81 mg PO DAILY [facility] Last Admin: 01/26/18 09:20 Dose: 81 mg Clopidogrel Bisulfate (Plavix) 75 mg PO DAILY [facility] Last Admin: 01/26/18 09:20 Dose: 75 mg Famotidine (Pepcid) 20 mg PO DAILY [facility] Last Admin: 01/26/18 09:20 Dose: 20 mg Ceftriaxone Sodium 1 gm/ (Sodium Chloride) 100 mls @ 100 mls/hr IVPB Q12H [facility] PRN Reason: Protocol Last Admin: 01/26/18 22:16 Dose: 100 mls/hr Dextrose/Sodium Chloride (Dextrose 5%/0.45% Ns 1000 Ml) 1,000 mls @ 100 mls/hr IV .Q10H [facility] Last Admin: 01/26/18 17:10 Dose: 100 mls/hr Insulin Human Regular (Novolin R) 0 unit SC ACHS [facility] PRN Reason: Protocol Levothyroxine Sodium (Synthroid) 25 mcg PO DAILY@0630 [facility] Last Admin: 01/26/18 05:30 Dose: 25 mcg Prednisone (Prednisone) 2.5 mg PO DAILY [facility] Rosuvastatin Calcium (Crestor) 20 mg PO HS [facility] Last Admin: 01/26/18 22:15 Dose: 20 mg - Labs Labs: 01/26/18 07:00 01/26/18 07:00 PT 11.6 SECONDS (9.7-12.2) 01/23/18 17:44 INR 1.0 01/23/18 17:44 APTT 19 SECONDS (21-34) L 01/23/18 17:44 Assessment and Plan (1) Fever Status: Acute (2) Transient ischemic attack Status: Acute (3) HTN (hypertension) Status: Acute (4) Hypothyroidism Status: Acute (5) Carcinoma of breast Status: Acute (6) S/P left mastectomy Status: Acute (7) Diabetes Status: Acute
[2018-01-26] MEDS ORDERED: Sodium Chloride 0.9% 1,000 ML IV SCH (22:45)
--- NOTE | 2018-01-27 01:39 | PN ---
DATE: SUBJECTIVE: The patient is seen and examined on the bed side, looking comfortable, son, friend, and other family members were sitting on the bedside. Do not have fever within the last 24 hours. Looks like dry mouth. No nausea, vomiting, diarrhea. No hematuria, hematochezia. No headache, no dizziness. No chest pain, no palpitation. Getting antibiotics. Discussion done with her family members. All questions answered. PHYSICAL EXAMINATION: VITAL SIGNS: Temperature 99.9, pulse 92, respiratory rate 18, blood pressure 151/76, pulse oximetry 97. HEENT: Head normocephalic, atraumatic. Eyes: PERRLA. Extraocular muscles intact. Conjunctivae clear. Nose patent. Mucous membranes moist. NECK: Supple. No carotid bruits, JVD, or thyromegaly. CHEST: Bilaterally symmetrical. HEART: S1 and S2 positive. LUNGS: Clear to auscultation. ABDOMEN: Soft. Bowel sounds positive. No organomegaly. EXTREMITIES: No edema, no cyanosis. NEUROLOGICAL: Patient is awake, alert, moving all 4 extremities. No focal deficits. CURRENT MEDICATIONS: Tylenol, aspirin, Plavix, Pepcid, ceftriaxone, insulin, levothyroxine, prednisone, Crestor. LABS: White blood cell count 4.6, hemoglobin 12.2, hematocrit 35.6, platelets 133. Sodium 131, potassium 3.4, BUN 9, creatinine 0.7, glucose 218. ASSESSMENT AND PLAN: Ms. Silvia Singh is a 77-year-old female with a leukopenia, hyponatremia, hypokalemia, hyperglycemia, fever of unknown cause, history of vasculitis as per patient's family, transient ischemic attack, hypertension, hypothyroidism, carcinoma of the breast, status post left mastectomy, diabetes mellitus. Continue antibiotics as per Infectious Disease, Dr. Pipe Deng, seen by Dr. Kimberly Cheung, parts chaser. Steroid long-term use because of vasculitis as per patient's family, history of TIA. Denies any neuropathy, retinopathy, or nephropathy. Denies coronary artery disease, at home was taking metformin, vasculitis, on steroid since 2008, on prednisone 2.5 mg p.o. daily will be started, levothyroxine 25 mcg daily for hypothyroidism, history of hypercholesterolemia, left mastectomy. Discussion done with the patient's nephew , neurologist .all questions answered . Mindi Richards MD [facility] # [id number] YIMI
[2018-01-27] MEDS: Levothyroxine 25 MCG TAB PO SCH (06:05)
[2018-01-27] MEDS: (Novolin R) Insulin Human Regular 100 units/ml vial SC SCH ×2 (08:04→12:11)
[2018-01-27 08:15] VITALS: BP 166/88; PULSE 80; RESP 20; TEMP 98.2; O2SAT 99
--- NOTE | 2018-01-27 13:23 | CP.PCM.PN ---
Subjective - Date & Time of Evaluation Date of Evaluation: 01/27/18 Time of Evaluation: 13:22 Objective - Vital Signs/Intake and Output Vital Signs (last 24 hours): Temp Pulse Resp BP Pulse Ox 98.2 F 80 20 166/88 H 99 01/27/18 08:00 01/27/18 08:00 01/27/18 08:00 01/27/18 08:00 01/27/18 08:00 Intake and Output: 01/27/18 01/27/18 06:59 18:59 Intake Total 1880 Balance 1880 - Medications Medications: Current Medications Acetaminophen (Tylenol 325mg Tab) 650 mg PO Q6 PRN PRN Reason: Headache temp 101 and above Last Admin: 01/26/18 22:16 Dose: 650 mg Aspirin (Aspirin Chewable) 81 mg PO DAILY [facility] Last Admin: 01/27/18 09:28 Dose: 81 mg Bisoprolol Fumarate (Zebeta) 5 mg PO DAILY [facility] Clopidogrel Bisulfate (Plavix) 75 mg PO DAILY [facility] Last Admin: 01/27/18 09:28 Dose: 75 mg Famotidine (Pepcid) 20 mg PO DAILY [facility] Last Admin: 01/27/18 09:28 Dose: 20 mg Ceftriaxone Sodium 1 gm/ (Sodium Chloride) 100 mls @ 100 mls/hr IVPB Q12H [facility] PRN Reason: Protocol Last Admin: 01/27/18 09:27 Dose: 100 mls/hr Sodium Chloride (Sodium Chloride 0.9%) 1,000 mls @ 100 mls/hr IV .Q10H [facility] Last Admin: 01/26/18 23:21 Dose: 100 mls/hr Insulin Human Regular (Novolin R) 0 unit SC ACHS [facility] PRN Reason: Protocol Last Admin: 01/27/18 12:11 Dose: Not Given Levothyroxine Sodium (Synthroid) 25 mcg PO DAILY@0630 [facility] Last Admin: 01/27/18 06:05 Dose: 25 mcg Prednisone (Prednisone) 2.5 mg PO DAILY [facility] Last Admin: 01/27/18 09:28 Dose: 2.5 mg Rosuvastatin Calcium (Crestor) 20 mg PO HS [facility] Last Admin: 01/26/18 22:15 Dose: 20 mg - Labs Labs: 01/26/18 07:00 01/26/18 07:00 PT 11.6 SECONDS (9.7-12.2) 01/23/18 17:44 INR 1.0 01/23/18 17:44 APTT 19 SECONDS (21-34) L 01/23/18 17:44 Assessment and Plan (1) Fever Status: Acute (2) Transient ischemic attack Status: Acute (3) HTN (hypertension) Status: Acute (4) Hypothyroidism Status: Acute (5) Carcinoma of breast Status: Acute (6) S/P left mastectomy Status: Acute (7) Diabetes Status: Acute
--- NOTE | 2018-01-27 15:28 | CP.PCM.PN ---
Subjective - Date & Time of Evaluation Date of Evaluation: 01/27/18 Time of Evaluation: 11:00 - Subjective Subjective: Alert. orientedx3, no sob or wheezing, NAD. Objective - Vital Signs/Intake and Output Vital Signs (last 24 hours): Temp Pulse Resp BP Pulse Ox 98.2 F 80 20 166/88 H 99 01/27/18 08:00 01/27/18 08:00 01/27/18 08:00 01/27/18 08:00 01/27/18 08:00 Intake and Output: 01/27/18 01/27/18 06:59 18:59 Intake Total 1880 Balance 1880 - Medications Medications: Current Medications Acetaminophen (Tylenol 325mg Tab) 650 mg PO Q6 PRN PRN Reason: Headache temp 101 and above Last Admin: 01/26/18 22:16 Dose: 650 mg Aspirin (Aspirin Chewable) 81 mg PO DAILY [facility] Last Admin: 01/27/18 09:28 Dose: 81 mg Bisoprolol Fumarate (Zebeta) 5 mg PO DAILY [facility] Last Admin: 01/27/18 13:26 Dose: 5 mg Clopidogrel Bisulfate (Plavix) 75 mg PO DAILY [facility] Last Admin: 01/27/18 09:28 Dose: 75 mg Famotidine (Pepcid) 20 mg PO DAILY [facility] Last Admin: 01/27/18 09:28 Dose: 20 mg Ceftriaxone Sodium 1 gm/ (Sodium Chloride) 100 mls @ 100 mls/hr IVPB Q12H [facility] PRN Reason: Protocol Last Admin: 01/27/18 09:27 Dose: 100 mls/hr Sodium Chloride (Sodium Chloride 0.9%) 1,000 mls @ 100 mls/hr IV .Q10H [facility] Last Admin: 01/26/18 23:21 Dose: 100 mls/hr Insulin Human Regular (Novolin R) 0 unit SC ACHS [facility] PRN Reason: Protocol Last Admin: 01/27/18 12:11 Dose: Not Given Levothyroxine Sodium (Synthroid) 25 mcg PO DAILY@0630 [facility] Last Admin: 01/27/18 06:05 Dose: 25 mcg Prednisone (Prednisone) 2.5 mg PO DAILY [facility] Last Admin: 01/27/18 09:28 Dose: 2.5 mg Rosuvastatin Calcium (Crestor) 20 mg PO HS [facility] Last Admin: 01/26/18 22:15 Dose: 20 mg - Labs Labs: 01/26/18 07:00 01/26/18 07:00 PT 11.6 SECONDS (9.7-12.2) 01/23/18 17:44 INR 1.0 01/23/18 17:44 APTT 19 SECONDS (21-34) L 01/23/18 17:44 Assessment and Plan - Assessment and Plan (Free Text) Assessment: Patient admitted with TIA, seen and examined. Alert and orientesx3, denies any pain or distress. Discussed with DR Richards and DR Deng, plan to discharge home on augmentin for 5 days. Advised to continue with all present meds. Advised to follow up with PMD and DR Deng in 1 week.
[2018-01-29 14:49] LABS: ANA PATTERN SPECKLED
== END 2018-01-27 14:25 | disposition home or self-care (01) | DRG 69 ==
LOC: C.ER 16:19 → C.9E 18:44 → C.6T 21:22
PROVIDERS: ADMIT Internal Medicine; ATTEND Internal Medicine
DX: G45.9 Transient cerebral ischemic attack, unspecified (principal); E87.1 Hypo-osmolality and hyponatremia; E03.9 Hypothyroidism, unspecified; E11.51 Type 2 diabetes mellitus with diabetic peripheral angiopathy without gangrene; E11.65 Type 2 diabetes mellitus with hyperglycemia; E61.1 Iron deficiency; E78.5 Hyperlipidemia, unspecified; E87.6 Hypokalemia; E87.8 Other disorders of electrolyte and fluid balance, not elsewhere classified; I10 Essential (primary) hypertension; I77.6 Arteritis, unspecified; M54.9 Dorsalgia, unspecified; R29.700 NIHSS score 0; Z79.52 Long term (current) use of systemic steroids; Z79.82 Long term (current) use of aspirin; Z79.84 Long term (current) use of oral hypoglycemic drugs; Z83.3 Family history of diabetes mellitus; Z85.3 Personal history of malignant neoplasm of breast